=== PATIENT | female | born 1995 | race African-American/Black ===

== ENCOUNTER 2020-06-19 10:31 | Emergency (ER) | payer MEDICAID ==
[~2020-06-19] VITALS: Ht 160 cm; Wt 97.6 kg
[2020-06-19] MEDS ORDERED: ESTR-1 PO (10:44)
[2020-06-19] MEDS ORDERED: NS 1,000 ML IV ONE (11:30)
[2020-06-19 12:13] LABS: BASO % 0.3 % (0.0-1.0); EOS % 0.1 % (0.0-3.0); HEMOGLOBIN 14.7 g/dl (12.0-15.5); LYMPH % 8.9 % (24.0-44.0); MEAN CORPUSCULAR HEMOGLOBIN 31.1 pg (27.0-33.0); MEAN CORPUSCULAR HGB CONC 32.7 g/dl (32.0-36.5); MEAN CORPUSCULAR VOLUME 95.3 fl (80.0-96.0); MONO # 0.3 10^3/uL (0.0-0.8); NEUTROPHILS # 9.4 10^3/uL (1.5-8.5); NEUTROPHILS % 87.1 % (36.0-66.0); PLATELET COUNT, AUTOMATED 229 10^3/uL (150-450); RED BLOOD COUNT 4.72 10^6/uL (4.00-5.40); WHITE BLOOD COUNT 10.7 10^3/uL (4.0-10.0)
--- NOTE | 2020-06-19 12:29 | REP ---
INDICATION: possible seizure (new onset). COMPARISON: None. TECHNIQUE: Helical scanning is acquired. 5 mm axial images were reformatted. Coronal MPR images were generated. FINDINGS: Bone window settings demonstrate an intact bony calvarium. There is no evidence of skull fracture or incidental bony calvarial lesion. The visualized paranasal sinuses appear clear. No intraorbital abnormality is seen. On soft tissue window setting images; the lateral, third, and fourth ventricles are normal in size and position. White-white differentiation pattern is normal above and below the tentorium. There are is no evidence of intracranial hemorrhage. No mass, edema, infarction, or midline shift is seen. No extra-axial fluid collection is appreciated. IMPRESSION: Negative noncontrast head CT. <Electronically signed by Cam Ybarra > 06/19/20 [id number]
[2020-06-19 12:37] LABS: ALBUMIN 4.1 GM/DL (3.2-5.2); BILIRUBIN,DIRECT 0.1 MG/DL (0.0-0.2); BILIRUBIN,TOTAL 0.3 MG/DL (0.2-1.0); MAGNESIUM LEVEL 2.5 MG/DL (1.8-2.4); TOTAL PROTEIN 7.9 GM/DL (6.4-8.2)
[2020-06-19 13:13] LABS: APPEARANCE, URINE CLEAR (CLEAR); BACTERIA, URINE AUTO NEGATIVE (NEGATIVE); BILIRUBIN, URINE AUTO NEGATIVE (NEGATIVE); BLOOD, URINE BLOOD NEGATIVE (NEGATIVE); COLOR, URINE STRAW (YELLOW); GLUCOSE, URINE (UA) AUTO NEGATIVE (NEGATIVE); KETONE, URINE AUTO TRACE mg/dL (NEGATIVE); LEUKOCYTE ESTERASE, URINE AUTO NEGATIVE (NEGATIVE); NITRITE, URINE AUTO NEGATIVE (NEGATIVE); PROTEIN, URINE AUTO NEGATIVE (NEGATIVE); RBC, URINE AUTO 1 /HPF (0-3); SPECIFIC GRAVITY URINE AUTO 1.009 (1.002-1.035); SQUAMOUS EPITHELIAL CELL UR AU 1 /HPF (0-6); UROBILINOGEN, URINE AUTO 0.2 mg/dL (0.0-2.0); WBC, URINE AUTO 1 /HPF (0-3)
[2020-06-19 13:45] LABS: AMPHETAMINES LEVEL URINE NEGATIVE (NEGATIVE); BARBITURATES URINE NEGATIVE (NEGATIVE); BENZODIAZEPINES URINE NEGATIVE (NEGATIVE); CANNABINOIDS URINE POSITIVE (NEGATIVE); COCAINE METABOLITE URINE NEGATIVE (NEGATIVE); METHADONE URINE NEGATIVE (NEGATIVE); OPIATES URINE NEGATIVE (NEGATIVE); PHENCYCLIDINE URINE NEGATIVE (NEGATIVE)
[2020-06-19 14:50] VITALS: BP 129/68
--- NOTE | 2020-06-20 07:34 | ECGEPIP ---
[facility] - ED Test Date: 2020-06-19 Pat Name: ROB CORDOVA Department: Room: - Gender: Female Manager Drug Safety: [facility] : 1995 Requested By: DANAE OSEGUERA PA-C. Order Number: [id number] Reading MD: Jenna Horvath Measurements Intervals [place] Rate: 64 P: 48 CT: 157 QRS: 4 QRSD: 77 T: 24 QT: 393 QTc: 407 Interpretive Statements SINUS RHYTHM WITH SINUS ARRHYTHMIA POSSIBLE LEFT ATRIAL ENLARGEMENT POSSIBLE RIGHT VENTRICULAR CONDUCTION DELAY No prior Electronically Signed on 06-20-2020 7:34:26 EST by Jenna Horvath
== END 2020-06-19 15:09 | disposition home or self-care (01) ==
LOC: M ED 10:31
DX: R56.9 Unspecified convulsions (principal); Z79.899 Other long term (current) drug therapy; F12.20 Cannabis dependence, uncomplicated